=== PATIENT | female | born 1990 | race African-American/Black ===

== ENCOUNTER 2020-12-01 09:45 | Emergency (ER) | payer OTHER ==
[2020-12-01] MEDS ORDERED: ACETAMINOPHEN 325 MG TABLET (FP) PO ONE (10:18)
[2020-12-01] MEDS ORDERED: ACETAMINOPHEN 325 MG TABLET (FP) ONE (10:19)
[2020-12-01 10:31] VITALS: BP 141/91; PULSE 95; TEMP 99.1; BMI 45.4
== END 2020-12-01 11:50 | disposition home or self-care (01) ==
LOC: FER 09:45 → EDBD 09:45 → FER 11:50
DX: S86.012A Strain of left Achilles tendon, initial encounter (principal)
CPT/HCPCS: 73610-TC-LT-FY; 99283-25